=== PATIENT | female | born 1960 | race Caucasian/White ===

== ENCOUNTER 2024-12-18 12:30 | Emergency (ER) | payer OTHER, SELFPAY ==
--- NOTE | ~2024-12-18 | CT_ITS ---
CLINICAL HISTORY: head injury, pain CT cervical spine without contrast Comparison: None Findings: There is straightening of the normal cervical lordosis. No fracture or acute malalignment. Multilevel degenerative changes with disc space narrowing throughout the cervical spine. The facet joints are normally imbricated. No prevertebral soft tissue edema. Lung apicies demonstrate no acute process. Impression: Multilevel degenerative changes without evidence of acute fracture or acute malalignment. This document has been electronically signed by: Nuno Hooks MD on 12/18/2024 13:54:26
--- NOTE | ~2024-12-18 | CT_ITS ---
CLINICAL HISTORY: head injury, pain CT head without contrast Comparison: None Findings: No intra-axial mass, midline shift, hydrocephalus, or acute hemorrhage. No significant atrophy-like change or white matter disease. Ethmoid air cells demonstrate mild mucoperiosteal thickening and partial opacification. Suggestion prior median antrostomies. There is no acute fracture. IMPRESSION: 1. No acute intracranial findings. This document has been electronically signed by: Nuno Hooks MD on 12/18/2024 13:56:22
--- NOTE | 2024-12-18 12:50 | ED.GENADULT ---
HPI - General Adult General Chief complaint: Head Injury Stated complaint: head injury Time Seen by Provider: 12/18/24 15:08 History of Present Illness HPI narrative: Patient complains of standing up abruptly under a metal first-aid box and she caught her head on the corner of the box and sustained a small cut No dizziness no fainting no loss of consciousness no nausea no vomiting no vision changes no confusion, no headache, no symptom except the cut itself No neck pain no numbness weakness or tingling no chest pain no back pain no preceding symptoms no fainting no syncope Related Data Allergies Allergy/AdvReac Type Severity Reaction Status Date / Time Latex, Natural Rubber AdvReac Rash Verified 12/18/24 12:54 [facility] Past Medical History Source: nursing notes reviewed Social History Social History Advance Directives: No Advance Directives Information Provided: Yes Physical Exam ED Vital Signs: Vital Signs - 24 hr 12/18/24 12:51 Temperature 97.6 F Pulse Rate 82 Respiratory Rate 18 Blood Pressure 142/50 H Pulse Oximetry 98 Oxygen Delivery Method Room Air BMI result Body Mass Index 28.3 General appearance no distress There is a 0.25 cm puncture wound on the top of the scalp which is not bleeding and is not deep does not need sutures, there is no surrounding swelling or hematoma there is no scalp hematoma, no raccoon eyes no alamo sign Eyes pupils equal round reactive to light extraocular motions are intact The face there is no tenderness or swelling or wound anywhere on the face The neck is supple with no tenderness to the back of the neck and full range of motion which is painless No respiratory distress Extremities full range of motion x4 Neuro gait and balance are normal, interaction comprehension expression are normal, cranial nerves 2-12 intact as tested, motor is 5/5 x4 and sensation intact and symmetrical Course Course Course Narrative: RME performed by Anju Bowles PA-C. Patient is a 64 year old assigned female at presenting to the emergency department with a head injury. Patient states that she was sweeping under a metal first aid kid when she came back up and hit her head. Patient did not have any loss of consciousness. Detailed physical exam and review of systems are deferred to the road roller operator hot mix. Imaging ordered. Patient placed back in the waiting room pending room availability and results. Small scalp laceration is irrigated, it is not deep or open and does not need suturing, head and C-spine CTs ordered from triage are negative for any acute injury fracture or bleed Well-appearing patient is discharged Medications Administered Discontinued Medications Generic Name Dose Route Start Last Admin Trade Name Freq PRN Reason Stop Dose Admin Diphtheria/Tetanus/Acell Pertussis 0.5 ml 12/18/24 12:52 12/18/24 15:23 Diphth,Pertus(Acell),Tet Adult 0.5 Ml Syringe IM 12/18/24 12:53 0.5 ml .ONCE ONE Administration Discharge Plan Discharge Clinical Impression: Laceration of scalp Patient Disposition: Home, Self-Care Additional Instructions: The small laceration to the scalp did not need any sutures CT of head and neck were negative No concerning findings on exam Okay to return to work in all activities Return any time any worse condition or any concerns Print Language: Polish
[2024-12-18 12:51] VITALS: BP 142/50; PULSE 82; RESP 18; TEMP 36.4; O2SAT 98; BMI 28.3
[2024-12-18] MEDS: Diphth,Pertus(ACell),Tet Adult 0.5 ML SYRINGE IM (15:23)
[2024-12-18 15:52] VITALS: BP 142/50; PULSE 82; RESP 18; TEMP 36.4; O2SAT 98
== END 2024-12-18 15:53 | disposition home or self-care (01) ==
PROVIDERS: Emergency Provider Emergency Medicine
DX: S01.01XA Laceration without foreign body of scalp, initial encounter (principal); M54.2 Cervicalgia; R51.9 Headache, unspecified; W26.9XXA Contact with unspecified sharp object(s), initial encounter; Y93.89 Activity, other specified; Y92.89 Other specified places as the place of occurrence of the external cause; Y99.8 Other external cause status; Z23 Encounter for immunization; Z79.899 Other long term (current) drug therapy
CPT/HCPCS: 70450; 72125; 90471; 90715; 99282; 99284

== ENCOUNTER → 2024-12-18 12:52 | Outpatient (BNV) | payer SELFPAY | PROVIDERS: Visit Provider Radiology Vascular & Interventional Radiology | DX: M50.30 Other cervical disc degeneration, unspecified cervical region (principal); S09.90XA Unspecified injury of head, initial encounter | CPT/HCPCS: 70450; 72125 ==